=== PATIENT | male | born 1965 | race Caucasian/White ===

== ENCOUNTER 2021-05-24 12:12 | Observation (INO) | payer OTHER ==
--- NOTE | 2021-05-24 15:05 | Event Note ---
ED Screening Note ED Screening Note: [place] interpretation by patient's friend with patient's permission Patient presents for right lower quadrant abdominal pain that began last night He states he took 2 Tylenol this morning but did not improve his pain very much He states he has had some difficulty with bowel movements He denies any nausea, vomiting, diarrhea, hematochezia, melena, hematemesis, urinary symptoms He has never had this pain before No past medical history No allergies to medicines He is a non-smoker nondrinker He has had no abdominal surgeries This initial assessment/diagnostic orders/clinical plan/treatment(s) is/are subject to change based on patients health status, clinical progression and re- assessment by fellow clinical providers in the ED. Further treatment and workup at subsequent clinical providers discretion. Patient/guardian urged not to elope from the ED as their condition may be serious if not clinically assessed and managed. Initial orders include: Labs, urine, CT
[2021-05-24] MEDS ORDERED: ONDANSETRON 4 MG/2 ML INJ IV ONE (16:20)
[2021-05-24] MEDS ORDERED: MORPHINE 4 MG/1 ML INJ IV ONE ×2 (16:20→18:41)
[2021-05-24 16:53] LABS: Bilirubin,Urine NEG (Negative); Blood,Urine MOD (Negative); Color,Urine Yellow (Yellow); Mucus,Urine 3+ /HPF; Protein,Urine <15 mg/dL mg/dL (Negative); Urobilinogen,Urine < 2.0 mg/dL (<2.0)
[2021-05-24 16:57] LABS: Basophils % (Auto) 0.4 % (0.0-1.8); Eosinophils # (Auto) 0.3 K/mm3 (0.0-0.4); Eosinophils % (Auto) 3.1 % (0.0-4.3); Hematocrit 46.8 % (35.5-45.6); Hemoglobin 15.6 gm/dl (11.8-15.2); Lymphocytes % (Auto) 19.5 % (13.4-35.0); Mean Corpuscular HGB Conc 33 % (32-34); Mean Corpuscular Volume 91 fl (84-94); Monocytes % (Auto) 10.1 % (0.0-7.3); Platelet Count 206 K/mm3 (140-440); Red Blood Count 5.16 M/mm3 (3.65-5.03); Red Cell Distribution Width 13.2 % (13.2-15.2)
--- NOTE | 2021-05-24 17:04 | Emergency Department Report ---
<RHONDA TOLBERT - Last Filed: 05/24/21 21:51> ED General Adult HPI - General Chief complaint: Abdominal Pain Stated complaint: STOMACH PAIN Time Seen by Provider: 05/24/21 15:03 Source: patient Mode of arrival: Ambulatory Limitations: No Limitations - History of Present Illness Initial comments: 56-year-old male patient presents to emergency department with complaints of right lower quadrant pain starting yesterday. Pain is sharp, nonradiating, constant. No history of similar symptoms. No known sick contacts. No history of prior abdominal surgeries. Last PO intake was approximately 7 hours earlier. Denies fever, chills, nausea, vomiting, diarrhea, constipation, hematuria, testicular pain/swelling. Denies all other complaints at this time. - Related Data Previous Rx's Medication Instructions Recorded Last Taken Type Ciprofloxacin HCl 500 mg PO BID #14 tablet 05/25/21 Unknown Rx Ondansetron [Zofran Odt] 4 mg PO Q8HR #20 tab.rapdis 05/25/21 Unknown Rx metroNIDAZOLE [Flagyl] 500 mg PO Q8HR #20 tablet 05/25/21 Unknown Rx traMADoL [Ultram] 50 mg PO Q6HR PRN #14 tablet 05/25/21 Unknown Rx Allergies Allergy/AdvReac Type Severity Reaction Status Date / Time No Known Allergies Allergy Verified 05/24/21 22:23 ED Review of Systems Other: GENERAL: Negative for fever, chills, weight change, anorexia, fatigue. ENT: Negative for ear pain, difficulty hearing, sore throat, nasal congestion, epistaxis. CARDIOVASCULAR: Negative for chest pain, palpitations, lower extremity swelling. PULMONARY: Negative for cough, dyspnea, wheezing, orthopnea, cyanosis. GASTROINTESTINAL: Positive for abdominal pain. MUSCULOSKELETAL: Negative for joint pain, joint swelling, myalgias, back pain, neck pain. NEUROLOGICAL: Negative for headache, seizure, syncope, paresthesias, weakness. INTEGUMENTARY: Negative for erythema, rash, diaphoresis, laceration, ecchymosis. HEMATOLOGICAL: Negative for hemoptysis, hematemesis, hematochezia, hematuria. PSYCHIATRIC: Negative for hallucinations, suicidal ideation, homicidal ideation, anxiety, depression. ED Past Medical Hx - Past Medical History Previous Medical History?: No - Surgical History Past Surgical History?: No - Medications Home Medications: Home Medications Medication Instructions Recorded Confirmed Last Taken Type Ciprofloxacin HCl 500 mg PO BID #14 tablet 05/25/21 Unknown Rx Ondansetron [Zofran Odt] 4 mg PO Q8HR #20 tab.rapdis 05/25/21 Unknown Rx metroNIDAZOLE [Flagyl] 500 mg PO Q8HR #20 tablet 05/25/21 Unknown Rx traMADoL [Ultram] 50 mg PO Q6HR PRN #14 tablet 05/25/21 Unknown Rx ED Physical Exam - General Limitations: No Limitations - Other Other exam information: General: Awake and alert. No acute distress. Head: Atraumatic, normocephalic. Eyes: EOMI. Pupils are equal and round. Normal sclera and conjunctiva. ENT: Oral mucosa is moist. Normal pharyngeal exam. Neck: Supple. No lymphadenopathy. Pulmonary: No respiratory distress. Clear to auscultation bilaterally. Cardiac: Regular rate and rhythm. Pulses are palpable and equal bilaterally. No lower extremity cyanosis or edema. Skin: Warm and dry. No rashes. Abdomen: Soft, non-protuberant. Positive McBurney's point tenderness with involuntary guarding. No rebound. Rovsing sign negative. Bowel sounds are normal. No organomegaly or masses noted. 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 Normal external inspection. No evidence of inguinal hernia. No scrotal edema or tenderness. No testicular asymmetry. Back: Normal alignment. No CVA tenderness. Extremities: Symmetrical. Full range of motion intact. Neurological: Alert and oriented, appropriately interactive, no focal deficits. Psych: Cooperative. Appropriate mood and affect. Speech is evenly metered. Thoughts are logically construed. ED Medical Decision Making - Lab Data Result diagrams: 05/24/21 16:33 05/24/21 16:33 - Medical Decision Making Differential diagnosis including but not limited to: appendicitis, pyelonephritis, nephrolithiasis, bowel obstruction, bowel perforation, mesenteric ischemia 18:35: CT of the abdomen/pelvis without acute process. Labs unremarkable except for hematuria. No radiographic evidence of stone or infection. Repeat abdominal exam unchanged. Testicular exam without evidence to suggest torsion. Etiology of patient's abdominal pain remains unclear. Patient will be given additional dose of Morphine/Toradol and reassessed prior to final disposition. 19:55: On reevaluation, patient states his pain is not improved. Repeat abdominal exam remains unchanged despite multiple doses of analgesic medications. High clinical suspicion for early appendicitis. Case discussed with Dr. Gonzalez, radiologist, who states that the appendix is not visualized on the CT scan. 20:30: Case discussed with Dr. Donaldson, general surgeon, who recommends admitting the patient to the hospital medicine service for pain control/serial abdominal examinations overnight and agrees to evaluate the patient in the morning. [employer] Tr[employer]er service was used to communicate plan of care to the patient, who expressed understanding. 21:20: Paged hospitalist for admission. 21:40: Case discussed with hospitalist, who agrees to admit. ED Disposition Clinical Impression: Acute right lower quadrant pain, Intractable abdominal pain, Enlarged prostate, Hematuria Disposition: ADMITTED INPATIENT Is pt being admited?: Yes Does the pt Need Aspirin: No Condition: Stable <SHAE PEACOCK - Last Filed: 05/28/21 12:40> ED Review of Systems ROS: Stated complaint: STOMACH PAIN Other details as noted in HPI ED Course Vital Signs 05/24/21 05/24/21 05/24/21 14:00 16:58 23:14 Temperature 98.1 F 98.3 F Pulse Rate 59 L 63 Respiratory 16 16 16 Rate Blood Pressure 112/68 Blood Pressure 118/70 [Right] O2 Sat by Pulse 100 100 Oximetry 05/24/21 23:51 Temperature Pulse Rate Respiratory Rate Blood Pressure Blood Pressure [Right] O2 Sat by Pulse 99 Oximetry ED Medical Decision Making - Lab Data Result diagrams: 05/25/21 08:13 05/25/21 08:13 - Medical Decision Making I examined patient at the bedside. Patient has significant right lower quadrant pain area of the appendix without clear etiology. Pain continues despite medications provided in the ED. CT scan was reinterpreted by second radiologist suggested prostatitis based on enlarged prostate. As per PA evaluation patient had endorsed urinary symptoms and UA significant for mild hematuria without leukocytosis, nitrites, or WBC. Therefore, antibiotics were not ordered for prostatitis in the ED. After ED work-up and discussion with Dr. Donaldson patient will be admitted to hospital service for observation and repeat examination by general surgeon. She requests no antibiotics and will evaluate patient tomorrow as per discussion with PA. I discussed case with hospitalist Dr Lee who agrees admit patient. General surgery consult ordered. Dr Lee informed of general surgeon preference for no abx by PA. Critical Care Time: No Critical care attestation.: If time is entered above; I have spent that time in minutes in the direct care of this critically ill patient, excluding procedure time.
[2021-05-24 17:12] LABS: Alanine Aminotransferase 27 units/L (7-56); Albumin 4.2 g/dL (3.9-5); Blood Urea Nitrogen 13 mg/dL (9-20); Calcium 8.9 mg/dL (8.4-10.2); Hemolysis Index 11
[2021-05-24 17:15] LABS: BUN/Creatinine Ratio 26
--- NOTE | 2021-05-24 17:55 | Cat Scan Report ---
CT ABDOMEN AND PELVIS WITH CONTRAST HISTORY: Right lower quadrant abdominal pain. COMPARISON: None TECHNIQUE: Routine abdominal and pelvic CT exam performed following intravenous contrast administrat ion. 100 mL Omnipaque [address] scans at this location are performed using CT dose reduct ion for ALARA by means of automated exposure control. FINDINGS: CT ABDOMEN: Lung Bases: No significant abnormality. Liver: No significant abnormality. Biliary: No significant abnormality. Spleen: No significant abnormality. Unenlarged. Pancreas: No significant abnormality. Adrenals: No significant abnormality. Kidneys: No significant abnormality. Lymphatics: No lymphadenopathy. There are some calcified mesenteric nodes likely indicative of previo us granulomatous exposure. Vasculature: No significant abnormality. Bowel/Peritoneum: No significant abnormality. No free air. No free fluid. CT PELVIC: : No significant abnormality. Lymphatics: No lymphadenopathy. Osseous Structures: No aggressive appearing osseous lesions. Additional Findings: None IMPRESSION: 1. No acute or concerning findings. Signer Name: Ross Cheek MD Signed: 05/24/2021 5:51 PM Workstation Name: [id number]
[2021-05-24] MEDS ORDERED: KETOROLAC 30 MG/1 ML INJ IV ONE (18:41)
[2021-05-24] MEDS ORDERED: ONDANSETRON 4 MG/2 ML INJ IV PRN (22:11)
[2021-05-24] MEDS ORDERED: ACETAMINOPHEN 325 MG TAB PO PRN (22:11)
[2021-05-24] MEDS ORDERED: MORPHINE 4 MG/1 ML INJ IV PRN (22:11)
[2021-05-24] MEDS ORDERED: MAGNESIUM HYDROXIDE (MOM) ORAL LIQD UDC PO PRN (22:11)
[2021-05-24] MEDS ORDERED: SODIUM CHLORIDE 0.9% 1000 ML 1,000 ML IV SCH (22:15)
--- NOTE | 2021-05-24 22:31 | History and Physical Report ---
History of Present Illness Date of examination: 05/24/21 Date of admission: 05/24/21 21:32 Chief complaint: Abdominal Pain History of present illness: 56-year-old [place] male who presents today emergency room today complaining of abdominal pain. Abdominal pain is said to be more in the lower abdomen and has been ongoing for the past 2 days. Abdominal pain is sharp, constant and non-radiating. No known relieving or exacerbating factor. Patient denies any fever or chills, no nausea vomiting, no diarrhea, no bright red blood per rectum, denies any constipation. He denies any hematuria or dysuria however he has noticed some yellowish penile discharge over the past week or so. Patient denies any testicular pain, denies any history of recent unprotected sex. Work-up in the emergency room today, urinalysis reveals moderate amount of blood otherwise essentially negative. CBC and chemistry were unremarkable. CT of the abdomen and pelvis reveals a grossly enlarged and heterogeneous prostate indenting the bladder base. Findings were concerning for possible prostatitis. Patient is being admitted with intractable abdominal pain. Past History Past Medical History: No medical history Past Surgical History: No surgical history Social history: no significant social history Family history: no significant family history Medications and Allergies Allergies Allergy/AdvReac Type Severity Reaction Status Date / Time No Known Allergies Allergy Verified 05/24/21 22:23 Active Meds: Active Medications Acetaminophen (Acetaminophen 325 Mg Tab) 650 mg PO Q4H PRN PRN Reason: Pain MILD(1-3)/Fever >100.5/KEYES Sodium Chloride (Nacl 0.9% 1000 Ml) 1,000 mls @ 75 mls/hr IV DIRECT LYNDSAY Magnesium Hydroxide (Magnesium Hydroxide (Mom) Oral Liqd Udc) 30 ml PO Q4H PRN PRN Reason: Constipation Morphine Sulfate (Morphine 2 Mg/1 Ml Inj) 2 mg IV Q4H PRN PRN Reason: Pain, Moderate (4-6) Morphine Sulfate (Morphine 4 Mg/1 Ml Inj) 4 mg IV Q4H PRN PRN Reason: Pain , Severe (7-10) Ondansetron HCl (Ondansetron 4 Mg/2 Ml Inj) 4 mg IV Q8H PRN PRN Reason: Nausea And Vomiting Sodium Chloride (Sodium Chloride 0.9% 10 Ml Flush Syringe) 10 ml IV BID LYNDSAY Sodium Chloride (Sodium Chloride 0.9% 10 Ml Flush Syringe) 10 ml IV PRN PRN PRN Reason: LINE FLUSH Review of Systems Constitutional: no fever, no chills Ears, nose, mouth and throat: no nasal congestion, no sore throat Cardiovascular: no chest pain, no palpitations Respiratory: no cough, no shortness of breath Gastrointestinal: abdominal pain, no nausea, no vomiting, no diarrhea Genitourinary Male: discharge (Yellowish penile discharge), no dysuria, no hematuria, no flank pain Musculoskeletal: no neck pain, no low back pain Integumentary: no rash, no pruritis Neurological: no headaches, no confusion Psychiatric: no anxiety, no depression Endocrine: no polyphagia, no polydipsia, no polyuria, no nocturia Exam - Constitutional Vitals: Temp Pulse Resp BP Pulse Ox 98.1 F 59 L 16 112/68 100 05/24/21 14:00 05/24/21 14:00 05/24/21 16:58 05/24/21 14:00 05/24/21 14:00 General appearance: Present: no acute distress, well-nourished - EENT Eyes: Present: PERRL, EOM intact. Absent: scleral icterus ENT: hearing intact, clear oral mucosa, dentition normal - Neck Neck: Present: supple, normal ROM - Respiratory Respiratory effort: normal Respiratory: bilateral: CTA - Cardiovascular Rhythm: regular Heart Sounds: Present: S1 & S2. Absent: gallop, systolic murmur, diastolic murmur, rub, click - Extremities Extremities: no ischemia, pulses intact, pulses symmetrical, No edema, normal temperature, normal color, Full ROM Peripheral Pulses: within normal limits - Abdominal General gastrointestinal: Present: soft, tender (Mild right lower quadrant/suprapubic tenderness. No rebound tenderness.), non-distended, normal bowel sounds. Absent: mass - Integumentary Integumentary: Present: clear, warm, dry. Absent: rash - Musculoskeletal Musculoskeletal: strength equal bilaterally - Psychiatric Psychiatric: appropriate mood/affect, intact judgment & insight, memory intact, cooperative - Neurologic Neurologic: CNII-XII intact, no focal deficits, moves all extremities Results - Labs CBC & Chem 7: 05/24/21 16:33 05/24/21 16:33 Labs: Abnormal lab results 08/17/21 08/17/21 Range/Units 16:33 16:33 RBC 5.16 H (3.65-5.03) M/mm3 Hgb 15.6 H (11.8-15.2) gm/dl Hct 46.8 H (35.5-45.6) % [place] % (Auto) 10.1 H (0.0-7.3) % [place] # (Auto) 1.0 H (0.0-0.8) K/mm3 Creatinine 0.5 L (0.8-1.3) mg/dL Assessment and Plan - Patient Problems (1) Intractable abdominal pain Current Visit: Yes Status: Acute Plan to address problem: Clear etiology is unknown. CT of the abdomen and pelvis findings were concerning for possible prostatitis. Patient has been placed on analgesic medication and empiric IV antibiotics. General surgery was consulted earlier by the ER physician to evaluate abdominal pain because of concerns for appendicitis. We will await further recommendations. (2) DVT prophylaxis Current Visit: Yes Status: Acute Plan to address problem: Patient placed on sequential compression device. (3) Full code status Current Visit: Yes Status: Acute Plan to address problem: Patient is full code.
[2021-05-25] MEDS: MORPHINE 2 MG/1 ML INJ IV PRN ×2 (01:29→05:15)
[2021-05-25 05:11] VITALS: BP 105/62
[2021-05-25 09:39] LABS: Blood Urea Nitrogen 14 mg/dL (9-20); Calcium 8.4 mg/dL (8.4-10.2); Hemolysis Index 5
[2021-05-25 09:47] LABS: Eosinophils # (Auto) 0.3 K/mm3 (0.0-0.4); Eosinophils % (Auto) 3.3 % (0.0-4.3); Hematocrit 45.3 % (35.5-45.6); Hemoglobin 15.5 gm/dl (11.8-15.2); Lymphocytes # (Auto) 1.2 K/mm3 (1.2-5.4); Lymphocytes % (Auto) 15.6 % (13.4-35.0); Mean Corpuscular HGB Conc 34 % (32-34); Mean Corpuscular Volume 90 fl (84-94); Monocytes # (Auto) 0.8 K/mm3 (0.0-0.8); Platelet Count 168 K/mm3 (140-440); Red Blood Count 5.03 M/mm3 (3.65-5.03); Red Cell Distribution Width 12.9 % (13.2-15.2)
[2021-05-25 09:56] LABS: BUN/Creatinine Ratio 28
--- NOTE | 2021-05-25 14:21 | Consultation ---
History of Present Illness Consult date: 05/25/21 Reason for consult: abdominal pain Chief complaint: abd pain - History of present illness History of present illness: 56 yo [place] male who presented to ER with 2 day history of right sided abdominal pain. The pain is localized to the right mid lateral abdomen and is sharp, constant. It does not radiate. He has never had pain like this before. Patient states he was doing some heavy lifting recently right around the time the pain started but unsure if this is the cause. He denies n/v, f/c. He has not had a BM today but was having regular BMs and is passing flatus. He tolerated a diet today without difficulty. He endorsed a history of some penile discharge to the admitting physician. Past History Past Medical History: No medical history Past Surgical History: No surgical history Social history: no significant social history Family history: no significant family history Medications and Allergies Allergies Allergy/AdvReac Type Severity Reaction Status Date / Time No Known Allergies Allergy Verified 05/24/21 22:23 Home Medications Medication Instructions Recorded Confirmed Last Taken Type Ciprofloxacin HCl 500 mg PO BID #14 tablet 05/25/21 Unknown Rx Ondansetron [Zofran Odt] 4 mg PO Q8HR #20 tab.rapdis 05/25/21 Unknown Rx metroNIDAZOLE [Flagyl] 500 mg PO Q8HR #20 tablet 05/25/21 Unknown Rx traMADoL [Ultram] 50 mg PO Q6HR PRN #14 tablet 05/25/21 Unknown Rx Active Meds: Active Medications Acetaminophen (Acetaminophen 325 Mg Tab) 650 mg PO Q4H PRN PRN Reason: Pain MILD(1-3)/Fever >100.5/KEYES Sodium Chloride (Nacl 0.9% 1000 Ml) 1,000 mls @ 75 mls/hr IV DIRECT LYNDSAY Levofloxacin/Dextrose (Levaquin 750mg/150ml) 750 mg in 150 mls @ 100 mls/hr IV Q24H LYNDSAY; Protocol Last Admin: 05/25/21 01:31 Dose: 100 mls/hr Documented by: Magnesium Hydroxide (Magnesium Hydroxide (Mom) Oral Liqd Udc) 30 ml PO Q4H PRN PRN Reason: Constipation Morphine Sulfate (Morphine 2 Mg/1 Ml Inj) 2 mg IV Q4H PRN PRN Reason: Pain, Moderate (4-6) Last Admin: 05/25/21 05:15 Dose: 2 mg Documented by: Morphine Sulfate (Morphine 4 Mg/1 Ml Inj) 4 mg IV Q4H PRN PRN Reason: Pain , Severe (7-10) Ondansetron HCl (Ondansetron 4 Mg/2 Ml Inj) 4 mg IV Q8H PRN PRN Reason: Nausea And Vomiting Sodium Chloride (Sodium Chloride 0.9% 10 Ml Flush Syringe) 10 ml IV BID LYNDSAY Last Admin: 05/25/21 09:51 Dose: 10 ml Documented by: Sodium Chloride (Sodium Chloride 0.9% 10 Ml Flush Syringe) 10 ml IV PRN PRN PRN Reason: LINE FLUSH Review of Systems All systems: negative (10 pt ROS Performed and negative except for that listed in HPI) Exam Vital Signs Temp Pulse Resp BP Pulse Ox 98.1 F 59 L 16 112/68 100 05/24/21 14:00 05/24/21 14:00 05/24/21 14:00 05/24/21 14:00 05/24/21 14:00 Narrative exam: Gen: AAOx3. NAD CV: S1, S2+ Resp: even and unlabored Abd: soft, ND, point TTP in right mid abdomen. No hernia. No r/r/g Ext: no c/c/e Results - Labs 05/25/21 08:13 05/25/21 08:13 Abnormal lab results 05/24/21 05/24/21 05/25/21 Range/Units 16:33 16:33 08:13 RBC 5.16 H (3.65-5.03) M/mm3 Hgb 15.6 H 15.5 H (11.8-15.2) gm/dl Hct 46.8 H (35.5-45.6) % RDW 12.9 L (13.2-15.2) % [place] % (Auto) 10.1 H 10.0 H (0.0-7.3) % [place] # (Auto) 1.0 H (0.0-0.8) K/mm3 Seg Neutrophils % 70.8 H (40.0-70.0) % Creatinine 0.5 L (0.8-1.3) mg/dL 05/25/21 Range/Units 08:13 RBC (3.65-5.03) M/mm3 Hgb (11.8-15.2) gm/dl Hct (35.5-45.6) % RDW (13.2-15.2) % [place] % (Auto) (0.0-7.3) % [place] # (Auto) (0.0-0.8) K/mm3 Seg Neutrophils % (40.0-70.0) % Creatinine 0.5 L (0.8-1.3) mg/dL Diabetes panel 05/24/21 05/25/21 Range/Units 16:33 08:13 Sodium 138 141 (137-145) mmol/L Potassium 3.9 3.9 (3.6-5.0) mmol/L Chloride 103.3 104.4 (98-107) mmol/L Carbon Dioxide 24 23 (22-30) mmol/L BUN 13 14 (9-20) mg/dL Creatinine 0.5 L 0.5 L (0.8-1.3) mg/dL Glucose 92 75 (75-100) mg/dL Calcium 8.9 8.4 (8.4-10.2) mg/dL AST 27 (5-40) units/L ALT 27 (7-56) units/L Alkaline Phosphatase 65 (35-129) units/L Total Protein 7.5 (6.3-8.2) g/dL Albumin 4.2 (3.9-5) g/dL Calcium panel 05/24/21 05/25/21 Range/Units 16:33 08:13 Calcium 8.9 8.4 (8.4-10.2) mg/dL Albumin 4.2 (3.9-5) g/dL Pituitary panel 05/24/21 05/25/21 Range/Units 16:33 08:13 Sodium 138 141 (137-145) mmol/L Potassium 3.9 3.9 (3.6-5.0) mmol/L Chloride 103.3 104.4 (98-107) mmol/L Carbon Dioxide 24 23 (22-30) mmol/L BUN 13 14 (9-20) mg/dL Creatinine 0.5 L 0.5 L (0.8-1.3) mg/dL Glucose 92 75 (75-100) mg/dL Calcium 8.9 8.4 (8.4-10.2) mg/dL Adrenal panel 05/24/21 05/25/21 Range/Units 16:33 08:13 Sodium 138 141 (137-145) mmol/L Potassium 3.9 3.9 (3.6-5.0) mmol/L Chloride 103.3 104.4 (98-107) mmol/L Carbon Dioxide 24 23 (22-30) mmol/L BUN 13 14 (9-20) mg/dL Creatinine 0.5 L 0.5 L (0.8-1.3) mg/dL Glucose 92 75 (75-100) mg/dL Calcium 8.9 8.4 (8.4-10.2) mg/dL Total Bilirubin 0.50 (0.1-1.2) mg/dL AST 27 (5-40) units/L ALT 27 (7-56) units/L Alkaline Phosphatase 65 (35-129) units/L Total Protein 7.5 (6.3-8.2) g/dL Albumin 4.2 (3.9-5) g/dL - Imaging CT scan - abdomen: report reviewed, image reviewed CT scan - pelvis: report reviewed, image reviewed Assessment and Plan 56 yo M with abd pain CT reviewed - no free fluid or inflammation, appendix not clearly visualized. Moderate stool burden in right colon. Prostatitis Plan: 1. Reg diet 2. anti-inflammatory pain meds 3. gentle IVF 4. abx per 1' team for prostatitis 5. Low suspicion for appendicitis given no inflammation, fluid in RLQ on CT scan, normal WBC and no shift. No acute surgical intervention. Patient advised to stay on a soft diet with plenty of fluids for the next few days and follow up with PCP. If pain worsens, advised him to return to ER. Plan discussed with patient and his family member on the phone who provided translation. Thank you, please call with questions.
--- NOTE | 2021-05-25 18:27 | Discharge Summary ---
Providers - Providers Date of Admission: 05/24/21 21:32 Attending physician: JUAN MORELOS MD 05/24/21 21:21 Consult to Physician [CONS] Urgent Comment: YVONNE Hammond spoke with Dr. More @ 2030 Consulting Provider: MARTINEZ MORE Physician Instructions: Reason For Exam: RLQ pain Primary care physician: [employer] Hospitalization Reason for admission: abdominal pain Condition: Stable Hospital course: 56-year-old [place] male who presents today emergency room today complaining of abdominal pain. Abdominal pain is said to be more in the lower abdomen and has been ongoing for the past 2 days. Abdominal pain is sharp, constant and non-radiating. No known relieving or exacerbating factor. Patient denies any fever or chills, no nausea vomiting, no diarrhea, no bright red blood per rectum, denies any constipation. He denies any hematuria or dysuria however he has noticed some yellowish penile discharge over the past week or so. Patient denies any testicular pain, denies any history of recent unprotected sex. Work-up in the emergency room today, urinalysis reveals moderate amount of blood otherwise essentially negative. CBC and chemistry were unremarkable. CT of the abdomen and pelvis reveals a grossly enlarged and heterogeneous prostate indenting the bladder base. Findings were concerning for possible prostatitis. Patient is being admitted with intractable abdominal pain. Patient today was seen by the surgeon Patient tolerating diet no follow-up planned by surgeon. Patient will be discharged on empiric antibiotics and to follow-up with urology outpatient. 56 yo M with abd pain CT reviewed - no free fluid or inflammation, appendix not clearly visualized. Moderate stool burden in right colon. Prostatitis Plan: 1. Reg diet 2. anti-inflammatory pain meds 3. gentle IVF 4. abx per 1' team for prostatitis 5. Low suspicion for appendicitis given no inflammation, fluid in RLQ on CT scan, normal WBC and no shift. No acute surgical intervention. Patient advised to stay on a soft diet with plenty of fluids for the next few days and follow up with PCP. If pain worsens, advised him to return to ER. (1) Intractable abdominal pain secondary to constipation and prostatitis Disposition: HOME / SELF CARE / HOMELESS Final Discharge Diagnosis (Prints w/discharge instructions): abdominal pain secondary to constipation and prostatitis Time spent for discharge: 35 mins Core Measure Documentation - Palliative Care Palliative Care/ Comfort Measures: Not Applicable - Core Measures Any of the following diagnoses?: none Exam - Physical Exam Narrative exam: General appearance: Present: no acute distress, well-nourished - EENT Eyes: Present: PERRL, EOM intact. Absent: scleral icterus ENT: hearing intact, clear oral mucosa, dentition normal - Neck Neck: Present: supple, normal ROM - Respiratory Respiratory effort: normal Respiratory: bilateral: CTA - Cardiovascular Rhythm: regular Heart Sounds: Present: S1 & S2. Absent: gallop, systolic murmur, diastolic murmur, rub, click - Extremities Extremities: no ischemia, pulses intact, pulses symmetrical, No edema, normal temperature, normal color, Full ROM Peripheral Pulses: within normal limits - Abdominal General gastrointestinal: Present: soft, tender (Mild right lower quadrant/suprapubic tenderness. No rebound tenderness.), non-distended, normal bowel sounds. Absent: mass - Integumentary Integumentary: Present: clear, warm, dry. Absent: rash - Musculoskeletal Musculoskeletal: strength equal bilaterally - Psychiatric Psychiatric: appropriate mood/affect, intact judgment & insight, memory intact, cooperative - Neurologic Neurologic: CNII-XII intact, no focal deficits, moves all extremities - Constitutional Vitals: Temp Pulse Resp BP Pulse Ox 97.6 F 74 20 105/62 99 05/25/21 05:03 05/25/21 05:03 05/25/21 05:03 05/25/21 05:03 05/25/21 13:09 Plan Activity: advance as tolerated, fall precautions Diet: regular Special Instructions: record daily weights Follow up with: RAMANDEEP HUBBARD MD [Staff Physician] - 7 Days PRIMARY CARE, [Primary Care Provider] - 3-5 Days Forms: Work/School Release Form Prescriptions: Ciprofloxacin HCl 500 mg PO BID #14 tablet metroNIDAZOLE [Flagyl] 500 mg PO Q8HR #20 tablet traMADoL [Ultram] 50 mg PO Q6HR PRN #14 tablet PRN Reason: Pain Ondansetron [Zofran Odt] 4 mg PO Q8HR #20 tab.rapdis
== END 2021-05-25 14:44 | disposition home or self-care (01) ==
LOC: ED 12:12 → 3A 21:32
PROVIDERS: ADMIT Internal Medicine Geriatric Medicine; ATTEND Internal Medicine
DX: R10.31 Right lower quadrant pain (principal); N40.0 Benign prostatic hyperplasia without lower urinary tract symptoms; R31.9 Hematuria, unspecified; Z79.899 Other long term (current) drug therapy
CPT/HCPCS: 36415; 74177; 80048; 80053; 81001; 83690; 85025; 96365; 96375; 96376; 99285; G0378; J1885; J1956; J2270; J2405; Q9967